=== PATIENT | female | born 1975 | race African-American/Black ===

== ENCOUNTER 2021-11-23 03:38 | Inpatient (IN) | payer MEDICARE, MEDICAID ==
[~2021-11-23] VITALS: Ht 165.1 cm; Wt 90.0 kg
[~2021-11-23 03:38] MED LIST: DILT240C94 PO; FOLI1TAB27 PO; FOLI1TAB34 PO; FURO-149 PO; HYDR-4069 PO; ICOS1CAP PO; LABE100T5 PO; OMEP20CA15 PO; SEVE800T8 PO
[2021-11-23] MEDS ORDERED: nitroGLYCERIN 1gm ointment UD TP ONE ×2 (03:57→04:05)
[2021-11-23] MEDS ORDERED: acetaminophen 325mg tablet PO ONE (04:00)
--- NOTE | 2021-11-23 04:11 | NUR ---
SAMANTHA (MOTHER AND POA) [phone]
--- NOTE | 2021-11-23 04:21 | NUR ---
PT DIALYSIS DAYS T, TH, SAT
[2021-11-23] MEDS ORDERED: PARO7.5C2 PO (04:34)
[2021-11-23] MEDS ORDERED: ALPR-624 PO (04:34)
[2021-11-23] MEDS ORDERED: ACET650S13 PO (04:34)
[2021-11-23] MEDS ORDERED: MULT-1085 PO (04:34)
[2021-11-23] MEDS ORDERED: MONT10TA21 PO (04:34)
[2021-11-23] MEDS ORDERED: BUDE0.5A11 NEB (04:34)
[2021-11-23] MEDS ORDERED: SEVE0.8P PO (04:34)
[2021-11-23] MEDS ORDERED: BUME2TAB7 PO (04:34)
[2021-11-23] MEDS ORDERED: ALB0.5UD IH (04:34)
[2021-11-23] MEDS ORDERED: ASPI81TA52 PO (04:34)
[2021-11-23] MEDS ORDERED: TIOT18CA3 PO (04:34)
[2021-11-23] MEDS ORDERED: PRED20TA PO (04:34)
[2021-11-23] MEDS ORDERED: SULF-14 PO (04:34)
[2021-11-23] MEDS ORDERED: HYDR-3686 PO (04:34)
[2021-11-23] MEDS ORDERED: PANT40TA54 PO (04:34)
[2021-11-23] MEDS ORDERED: FLUT16SP2 BOTHNARES (04:34)
[2021-11-23 04:43] LABS: ABG BASE EXCESS 6.3 mmol/L (-2.0-2.0); ABG OXYGEN SATURATION 99.3 % (94-97); ABG PCO2 (T) 49.1 mmHg (32.0-45.0); ABG PO2 (T) 398.2 mmHg (75.0-100.0); ALLEN'S TEST POSITIVE; FCOHb 0.2 % (0.0-3.9); FMetHb 0.3 % (0.0-1.5); FO2Hb 98.8 % (94-97); PATIENT TEMPERATURE 38.6; TOTAL HEMOGLOBIN 10.3 G/dl (12.0-16.0)
[2021-11-23 04:49] LABS: BASOPHILS # (AUTO) 0.1 X10'3 (0-0.2); BASOPHILS % (AUTO) 0.4 % (0-1); EOSINOPHILS # (AUTO) 0.2 X10'3 (0-0.9); EOSINOPHILS % (AUTO) 1.4 % (0-6); HEMATOCRIT 30.6 % (35.0-45.0); HEMOGLOBIN 9.4 g/dl (12.0-16.0); LYMPHOCYTES # (AUTO) 2.4 X10'3 (1.1-4.8); LYMPHOCYTES % (AUTO) 16.4 % (21-51); MEAN CORPUSCULAR HEMOGLOBIN 27.4 PG (27.0-31.0); MEAN CORPUSCULAR HGB CONC 30.8 g/dL (33.0-36.5); MEAN CORPUSCULAR VOLUME 89.1 FL (78-98); MEAN PLATELET VOLUME 8.1 FL (7.4-10.4); MONOCYTES # (AUTO) 1.1 X10'3 (0-0.9); MONOCYTES % (AUTO) 7.5 % (2-12); NEUTROPHILS # (AUTO) 10.7 X10'3 (1.8-7.7); NEUTROPHILS % (AUTO) 74.3 % (42-75); PLATELET COUNT 323 X10'3 (140-440); RED BLOOD COUNT 3.44 X10'6 (4.20-5.60); RED CELL DISTRIBUTION WIDTH 16.8 % (11.5-14.5); WHITE BLOOD COUNT 14.3 X10'3 (4.5-11.0)
[2021-11-23] MEDS ORDERED: vancomycin/NS 1 GM ADD-VANTAGE 250 ML IV STA (05:37)
[2021-11-23] MEDS ORDERED: cefepime 1GM/NS ADD-VANTAGE 100 ML IV STA (05:37)
[2021-11-23] MEDS ORDERED: cefepime 1GM in D5W 50mL 50 ML IV STA (05:42)
[2021-11-23 05:47] LABS: ALANINE AMINOTRANSFERASE 19 U/L (12-78); ALBUMIN 2.9 G/DL (3.4-5.0); ALBUMIN/GLOBULIN RATIO 0.9 (1.1-1.5); ALKALINE PHOSPHATASE 118 IU/L (46-116); ANION GAP 8 (8-16); ASPARTATE AMINO TRANSFERASE 21 U/L (10-37); BILIRUBIN,TOTAL 0.3 MG/DL (0.1-1.0); BLOOD UREA NITROGEN 88 MG/DL (7-18); BUN/CREATININE RATIO 12.6 (6.6-38.0); CALCIUM 9.8 MG/DL (8.5-10.1); CHLORIDE 99 MMOL/L (99-107); CREATININE 6.99 MG/DL (0.40-0.90); GLUCOSE 145 MG/DL (70-104); SODIUM 141 MMOL/L (135-145); eGFR 8 ML/MIN
[2021-11-23 05:50] LABS: POTASSIUM 4.5 MMOL/L (3.5-5.1)
[2021-11-23] MEDS ORDERED: ipratropium/albuterol 3ml nebule NEB ONE (05:55)
[2021-11-23] MEDS ORDERED: HYDROcodone/acetaminophen 10/325mg tab PO ONE (07:50)
[2021-11-23] MEDS ORDERED: potassium Cl 20 mEq SR tablet PO PRN (09:15)
[2021-11-23] MEDS ORDERED: magnesium Cl slow-release 64mg tablet PO PRN (09:15)
[2021-11-23] MEDS ORDERED: magnesium 2GM in 50ml NS 50 ML IV PRN (09:15)
[2021-11-23] MEDS ORDERED: magnesium 4gm in 100ml NS 100 ML IV PRN (09:15)
[2021-11-23] MEDS ORDERED: potassium CL 10mEq/100ml bag 100 ML IV PRN (09:15)
[2021-11-23] MEDS ORDERED: ALPRAZolam 0.5mg tablet PO PRN (09:20)
[2021-11-23] MEDS: fluticasone nasal spray 16GM bottle NS SCH (09:27)
[2021-11-23] MEDS: albuterol 2.5 MG/3 ML nebule NEB PRN ×3 (10:18→20:17)
[2021-11-23] MEDS ORDERED: EPOETIN ALFA-EPBX 20,000 UNIT/ML 1 ML MDV IV ONE (14:20)
[2021-11-23] MEDS ORDERED: albumin (human) 25% 100ml IV 100 ML IV PRN (14:20)
[2021-11-23] MEDS ORDERED: LIDOcaine 1% (10mg/ml) 2ml vial SQ ONE (14:40)
[2021-11-23] MEDS ORDERED: ARFO15VI NEB (15:08)
[2021-11-23] MEDS ORDERED: BENZ-49 PO (15:08)
[2021-11-23] MEDS ORDERED: ALBU2.5V13 NEB (15:08)
[2021-11-23] MEDS ORDERED: SEVE2.4P3 PO (15:08)
[2021-11-23] MEDS ORDERED: CARV25TA2 PO (15:08)
[2021-11-23] MEDS ORDERED: HYDR50TA65 PO (15:08)
[2021-11-23] MEDS ORDERED: PRED10TA23 PO (15:08)
[2021-11-23] MEDS ORDERED: HYDR-3964 PO (15:08)
[2021-11-23] MEDS ORDERED: [UNRECOGNIZED DRUG - CODE] PO (15:10)
[2021-11-23] MEDS ORDERED: FLUT16SP26 BOTHNARES ×2 (15:13→15:14)
[2021-11-23] MEDS: sevelamer carbonate 0.8gm powder pkt PO SCH (16:00)
[2021-11-23] MEDS ORDERED: LORazepam 2 mg/ml vial IV PRN (16:20)
[2021-11-23] MEDS: acetaminophen 325mg tablet PO PRN (17:41)
[2021-11-23] MEDS: benzonatate 100mg capsule PO PRN (17:42)
[2021-11-23] MEDS: K and/or MAG REPLACEMENT MC SCH (20:00)
[2021-11-23] MEDS: heparin, porcine 5000 units/ml vial SQ SCH (20:00)
[2021-11-23] MEDS: furosemide 40mg/4ml inj IV SCH (20:00)
[2021-11-23] MEDS: budesonide 0.5mg/2ml UD nebule IH SCH (20:17)
[2021-11-23] MEDS: LORazepam 0.5 MG tablet PO PRN (21:25)
[2021-11-23] MEDS: hydrOXYzine 25 MG tablet PO PRN (21:25)
[2021-11-24] MEDS: temazepam 15mg capsule PO PRN ×2 (00:13→19:35)
[2021-11-24 02:00] VITALS: BP 107/56
[2021-11-24 05:56] LABS: BASOPHILS % (AUTO) 0.2 % (0-1); EOSINOPHILS # (AUTO) 0.3 X10'3 (0-0.9); EOSINOPHILS % (AUTO) 2.9 % (0-6); HEMATOCRIT 26.2 % (35.0-45.0); HEMOGLOBIN 8.3 g/dl (12.0-16.0); LYMPHOCYTES # (AUTO) 1.8 X10'3 (1.1-4.8); LYMPHOCYTES % (AUTO) 16.2 % (21-51); MEAN CORPUSCULAR HEMOGLOBIN 27.7 PG (27.0-31.0); MEAN CORPUSCULAR HGB CONC 31.6 g/dL (33.0-36.5); MEAN CORPUSCULAR VOLUME 87.7 FL (78-98); MEAN PLATELET VOLUME 7.5 FL (7.4-10.4); MONOCYTES # (AUTO) 0.6 X10'3 (0-0.9); MONOCYTES % (AUTO) 5.5 % (2-12); NEUTROPHILS # (AUTO) 8.2 X10'3 (1.8-7.7); NEUTROPHILS % (AUTO) 75.2 % (42-75); PLATELET COUNT 225 X10'3 (140-440); RED BLOOD COUNT 2.99 X10'6 (4.20-5.60); WHITE BLOOD COUNT 10.9 X10'3 (4.5-11.0)
[2021-11-24 06:00] VITALS: BP 107/54
[2021-11-24 06:49] LABS: ALANINE AMINOTRANSFERASE 15 U/L (12-78); ALBUMIN 2.5 G/DL (3.4-5.0); ALKALINE PHOSPHATASE 99 IU/L (46-116); ANION GAP 10 (8-16); ASPARTATE AMINO TRANSFERASE 13 U/L (10-37); BILIRUBIN,TOTAL 0.5 MG/DL (0.1-1.0); BLOOD UREA NITROGEN 44 MG/DL (7-18); BUN/CREATININE RATIO 9.1 (6.6-38.0); CALCIUM 9.2 MG/DL (8.5-10.1); CHLORIDE 101 MMOL/L (99-107); CREATININE 4.84 MG/DL (0.40-0.90); GLUCOSE 82 MG/DL (70-104); POTASSIUM 5.1 MMOL/L (3.5-5.1); SODIUM 143 MMOL/L (135-145); TOTAL CARBON DIOXIDE 31.9 MMOL/L (24-32); eGFR 12 ML/MIN
[2021-11-24] MEDS: K and/or MAG REPLACEMENT MC SCH ×2 (08:00→20:00)
[2021-11-24] MEDS: heparin, porcine 5000 units/ml vial SQ SCH ×2 (08:00→19:18)
[2021-11-24] MEDS: PARoxetine 10mg tablet PO SCH (08:00)
[2021-11-24] MEDS: montelukast 10mg tablet PO SCH (08:00)
[2021-11-24] MEDS: fluticasone nasal spray 16GM bottle NS SCH (08:00)
[2021-11-24] MEDS: furosemide 40mg/4ml inj IV SCH ×2 (08:00→19:19)
[2021-11-24] MEDS: aspirin 81mg, enteric-coated 1 TAB TABLET.DR PO SCH (08:07)
[2021-11-24] MEDS: acetaminophen 325mg tablet PO PRN ×2 (08:07→14:33)
[2021-11-24] MEDS: sevelamer carbonate 0.8gm powder pkt PO SCH ×3 (08:14→16:00)
[2021-11-24] MEDS: budesonide 0.5mg/2ml UD nebule IH SCH (09:45)
[2021-11-24] MEDS: albuterol 2.5 MG/3 ML nebule NEB PRN (10:09)
[2021-11-24] MEDS: hydrOXYzine 25 MG tablet PO PRN ×2 (14:29→19:17)
--- NOTE | 2021-11-24 14:54 | NUR ---
O2 Sat at rest on room air:___% If below 89%: Recovery O2 Sat at rest on ___LPM:___%:___% via (mask/nasal cannula, etc..) No further documentation is necessary. If O2 Sat did not drop below 89% on room air,ambulate patient on room air. O2 Sat while ambulating on room air:_82__% Recovery O2 Sat while ambulating on __3_LPM:_92__% No further documentation is necessary. If patient does not drop below 89% while ambulating, he/she does not qualify for home O2.
[2021-11-24 15:00] VITALS: BP 154/93
[2021-11-24 18:00] VITALS: BP 140/63
[2021-11-24] MEDS: benzonatate 100mg capsule PO PRN (19:35)
[2021-11-24] MEDS: LORazepam 0.5 MG tablet PO PRN (19:35)
[2021-11-24] MEDS: carVEDilol 12.5mg tablet PO SCH (21:19)
[2021-11-24 22:00] VITALS: BP 131/84
[2021-11-25 02:00] VITALS: BP 122/62
[2021-11-25 06:00] VITALS: BP 135/83
--- NOTE | 2021-11-25 06:47 | NUR ---
Patient was to be discharged 11/24 but oxygen supply didnt deliver. Patient stayed over night medicated with medication as ordered blood pressure given. She asked for pain meds and ativan Her bipap was put on as she rested well.
[2021-11-25 07:00] VITALS: BP 135/83
[2021-11-25 07:01] LABS: BASOPHILS % (AUTO) 0.3 % (0-1); EOSINOPHILS # (AUTO) 0.3 X10'3 (0-0.9); EOSINOPHILS % (AUTO) 3.2 % (0-6); HEMATOCRIT 24.1 % (35.0-45.0); HEMOGLOBIN 7.8 g/dl (12.0-16.0); LYMPHOCYTES # (AUTO) 1.6 X10'3 (1.1-4.8); LYMPHOCYTES % (AUTO) 19.7 % (21-51); MEAN CORPUSCULAR HEMOGLOBIN 27.9 PG (27.0-31.0); MEAN CORPUSCULAR HGB CONC 32.2 g/dL (33.0-36.5); MEAN CORPUSCULAR VOLUME 86.7 FL (78-98); MEAN PLATELET VOLUME 7.7 FL (7.4-10.4); MONOCYTES # (AUTO) 0.6 X10'3 (0-0.9); MONOCYTES % (AUTO) 6.8 % (2-12); NEUTROPHILS # (AUTO) 5.7 X10'3 (1.8-7.7); PLATELET COUNT 210 X10'3 (140-440); RED BLOOD COUNT 2.78 X10'6 (4.20-5.60); RED CELL DISTRIBUTION WIDTH 16.1 % (11.5-14.5); WHITE BLOOD COUNT 8.1 X10'3 (4.5-11.0)
[2021-11-25 07:13] LABS: ALANINE AMINOTRANSFERASE 10 U/L (12-78); ALBUMIN 2.3 G/DL (3.4-5.0); ALBUMIN/GLOBULIN RATIO 0.9 (1.1-1.5); ALKALINE PHOSPHATASE 101 IU/L (46-116); ANION GAP 8 (8-16); ASPARTATE AMINO TRANSFERASE 10 U/L (10-37); BILIRUBIN,TOTAL 0.3 MG/DL (0.1-1.0); BLOOD UREA NITROGEN 64 MG/DL (7-18); BUN/CREATININE RATIO 9.6 (6.6-38.0); CALCIUM 9.2 MG/DL (8.5-10.1); CHLORIDE 102 MMOL/L (99-107); CREATININE 6.64 MG/DL (0.40-0.90); GLUCOSE 113 MG/DL (70-104); POTASSIUM 4.8 MMOL/L (3.5-5.1); SODIUM 142 MMOL/L (135-145); TOTAL CARBON DIOXIDE 32.3 MMOL/L (24-32); TOTAL PROTEIN 4.9 G/DL (6.4-8.2); eGFR 8 ML/MIN
[2021-11-25] MEDS: fluticasone nasal spray 16GM bottle NS SCH (08:00)
[2021-11-25] MEDS: heparin, porcine 5000 units/ml vial SQ SCH (08:00)
[2021-11-25] MEDS: PARoxetine 10mg tablet PO SCH (08:00)
[2021-11-25] MEDS: furosemide 40mg/4ml inj IV SCH (08:00)
[2021-11-25] MEDS: K and/or MAG REPLACEMENT MC SCH (08:00)
[2021-11-25] MEDS: sevelamer carbonate 0.8gm powder pkt PO SCH ×2 (09:21)
[2021-11-25] MEDS: montelukast 10mg tablet PO SCH (09:22)
[2021-11-25] MEDS: aspirin 81mg, enteric-coated 1 TAB TABLET.DR PO SCH (09:23)
[2021-11-25] MEDS: carVEDilol 12.5mg tablet PO SCH (09:23)
[2021-11-25] MEDS: hydrOXYzine 25 MG tablet PO PRN (09:24)
[2021-11-25] MEDS ORDERED: EPOETIN ALFA-EPBX 20,000 UNIT/ML 1 ML MDV IV ONE (09:30)
[2021-11-25] MEDS ORDERED: albumin (human) 25% 100ml IV 100 ML IV PRN (09:30)
[2021-11-25] MEDS ORDERED: LIDOcaine 1% (10mg/ml) 2ml vial SQ ONE (09:30)
[2021-11-25] MEDS: budesonide 0.5mg/2ml UD nebule IH SCH ×2 (10:21→10:24)
[2021-11-25] MEDS: albuterol 2.5 MG/3 ML nebule NEB PRN (10:22)
[2021-11-25 11:00] VITALS: BP 119/80
== END 2021-11-25 11:40 | disposition home or self-care (01) | DRG 291 ==
LOC: ER 03:38 → ED HOLD 09:18 → PCU 3S 11:45
PROVIDERS: ADMIT Internal Medicine; ATTEND Internal Medicine
PROC: 5A09357 Assistance with Respiratory Ventilation, Less than 24 Consecutive Hours, Continuous Positive Airway Pressure (ICD-10-PCS; principal; 2021-11-23)
PROC: 5A1D70Z Performance of Urinary Filtration, Intermittent, Less than 6 Hours Per Day (ICD-10-PCS; 2021-11-23)
PROC: 5A09357 Assistance with Respiratory Ventilation, Less than 24 Consecutive Hours, Continuous Positive Airway Pressure (ICD-10-PCS; 2021-11-25)
DX: I13.2 Hypertensive heart and chronic kidney disease with heart failure and with stage 5 chronic kidney disease, or end stage renal disease (principal); J96.00 Acute respiratory failure, unspecified whether with hypoxia or hypercapnia; I50.23 Acute on chronic systolic (congestive) heart failure; N18.6 End stage renal disease; I40.1 Isolated myocarditis; D63.1 Anemia in chronic kidney disease; E66.01 Morbid (severe) obesity due to excess calories; F41.0 Panic disorder [episodic paroxysmal anxiety]; G47.30 Sleep apnea, unspecified; Z20.822 Contact with and (suspected) exposure to COVID-19; Z86.73 Personal history of transient ischemic attack (TIA), and cerebral infarction without residual deficits; Z99.2 Dependence on renal dialysis; Z68.33 Body mass index [BMI] 33.0-33.9, adult; Z88.8 Allergy status to other drugs, medicaments and biological substances; Z88.5 Allergy status to narcotic agent; Z79.899 Other long term (current) drug therapy; Z79.82 Long term (current) use of aspirin
CPT/HCPCS: 36415; 36600; 71045; 80053; 82803; 83605; 83880; 84145; 84484; 85018; 85025; 87040; 87635; 93005; 93306; 94640; 94660; 94760; 94799; 97116; 97163; 97530; 99285; C9803; G0257; G0378; J0692; J2060; J3370; J3490; Q0177; Q4081

== ENCOUNTER 2021-12-03 23:31 | Inpatient (IN) | payer MEDICARE, MEDICAID ==
[~2021-12-03] VITALS: Ht 165.1 cm; Wt 94.9 kg
[~2021-12-03 23:31] MED LIST changes: +ALBU2.5V13 NEB; +ALPR-624 PO; +ARFO15VI NEB; +ASPI81TA52 PO; +BENZ-49 PO; +BUDE0.5A11 NEB; +BUME2TAB7 PO; +CARV25TA2 PO; -DILT240C94 PO; +FLUT16SP26 BOTHNARES; -FOLI1TAB27 PO; -FOLI1TAB34 PO; -FURO-149 PO; +HYDR-3964 PO; -HYDR-4069 PO; +HYDR50TA65 PO; -ICOS1CAP PO; -LABE100T5 PO; +MONT10TA21 PO; -OMEP20CA15 PO; +PRED10TA23 PO; +SEVE2.4P3 PO; -SEVE800T8 PO; +SULF-14 PO; +TIOT18CA3 PO; +[UNRECOGNIZED DRUG - CODE] PO
[2021-12-04 00:17] LABS: BASOPHILS % (AUTO) 0.2 % (0-1); EOSINOPHILS % (AUTO) 0.3 % (0-6); HEMOGLOBIN 8.6 g/dl (12.0-16.0); LYMPHOCYTES # (AUTO) 2.1 X10'3 (1.1-4.8); LYMPHOCYTES % (AUTO) 13.3 % (21-51); MEAN CORPUSCULAR HEMOGLOBIN 26.9 PG (27.0-31.0); MEAN CORPUSCULAR HGB CONC 30.8 g/dL (33.0-36.5); MEAN CORPUSCULAR VOLUME 87.3 FL (78-98); MEAN PLATELET VOLUME 7.3 FL (7.4-10.4); MONOCYTES % (AUTO) 6.4 % (2-12); NEUTROPHILS # (AUTO) 12.5 X10'3 (1.8-7.7); NEUTROPHILS % (AUTO) 79.8 % (42-75); PLATELET COUNT 351 X10'3 (140-440); RED CELL DISTRIBUTION WIDTH 16.2 % (11.5-14.5); WHITE BLOOD COUNT 15.7 X10'3 (4.5-11.0)
[2021-12-04] MEDS ORDERED: benzonatate 100mg capsule PO ONE (00:25)
[2021-12-04] MEDS ORDERED: ipratropium/albuterol 3ml nebule NEB ONE ×2 (00:30→04:00)
[2021-12-04] MEDS ORDERED: methylPREDNISolone sod succ 125mg/2ml vial IV ONE (00:30)
[2021-12-04 00:31] LABS: ALANINE AMINOTRANSFERASE 46 U/L (12-78); ALBUMIN 3.4 G/DL (3.4-5.0); ALBUMIN/GLOBULIN RATIO 1.1 (1.1-1.5); ALKALINE PHOSPHATASE 126 IU/L (46-116); ANION GAP 8 (8-16); ASPARTATE AMINO TRANSFERASE 20 U/L (10-37); BILIRUBIN,TOTAL 0.4 MG/DL (0.1-1.0); BLOOD UREA NITROGEN 60 MG/DL (7-18); BUN/CREATININE RATIO 10.3 (6.6-38.0); CALCIUM 9.4 MG/DL (8.5-10.1); CHLORIDE 101 MMOL/L (99-107); GLUCOSE 245 MG/DL (70-104); POTASSIUM 5.4 MMOL/L (3.5-5.1); SODIUM 142 MMOL/L (135-145); TOTAL PROTEIN 6.4 G/DL (6.4-8.2); eGFR 10 ML/MIN
[2021-12-04] MEDS ORDERED: CefTRIAXone/D5W-Rocephin 1gm 50 ML IV ONE (00:45)
[2021-12-04] MEDS ORDERED: nitroGLYCERIN 1gm ointment UD TP STA (01:01)
[2021-12-04] MEDS ORDERED: magnesium 4gm in 100ml NS 100 ML IV PRN (01:35)
[2021-12-04] MEDS ORDERED: potassium Cl 20 mEq SR tablet PO PRN ×2 (01:35)
[2021-12-04] MEDS ORDERED: potassium CL 10mEq/100ml bag 100 ML IV PRN (01:35)
[2021-12-04] MEDS ORDERED: morphine 2 MG/ML inj. syringe IV PRN (01:35)
[2021-12-04] MEDS ORDERED: ipratropium/albuterol 3ml nebule NEB PRN ×2 (01:35)
[2021-12-04] MEDS ORDERED: magnesium 2GM in 50ml NS 50 ML IV PRN (01:35)
[2021-12-04] MEDS ORDERED: ondansetron/PF 4mg/2ml inj IV PRN (01:35)
[2021-12-04] MEDS ORDERED: magnesium Cl slow-release 64mg tablet PO PRN (01:35)
--- NOTE | 2021-12-04 01:47 | NUR ---
luci webb [facility] [place] [phone]
[2021-12-04] MEDS ORDERED: diphenhydrAMINE 50 mg/ml inj IV ONE ×2 (01:50→02:00)
--- NOTE | 2021-12-04 01:57 | NUR ---
pt changed into hospital gown and repositioned in bed. no complaints at this time.
[2021-12-04] MEDS ORDERED: hydrOXYzine 10 MG tablet PO STA (02:06)
[2021-12-04] MEDS ORDERED: hydrOXYzine 10 MG tablet PO PRN (02:10)
[2021-12-04] MEDS ORDERED: ALPRAZolam 0.25mg tablet PO ONE (03:45)
--- NOTE | 2021-12-04 04:58 | NUR ---
Patient continues to complain of cough, room temp and anxiety. Dr. Hill has been advised. Troponin is also due, however she is a hard stick and IV is now occluded.
[2021-12-04] MEDS ORDERED: guaiFENesin/DM/phenylephrine syrup 120ml bottle PO STA (05:04)
--- NOTE | 2021-12-04 05:13 | NUR ---
Patient complaining of the room being hot again, and I advised her I have adjusted the temp control down as low as it goes. She then said "I've told you I'm hot and coughing Bitch and you won't do anything to help so just leave". I left the room.
[2021-12-04] MEDS ORDERED: guaiFENesin/DM 10ml UD oral syrup PO STA (05:19)
[2021-12-04] MEDS ORDERED: guaiFENesin/DM 10ml UD oral syrup PO ONE (05:25)
--- NOTE | 2021-12-04 06:06 | NUR ---
sent request to RT for breathing treatment.
--- NOTE | 2021-12-04 06:58 | NUR ---
TELEPHONE REPORT TO BRAD QUINONES.
[2021-12-04] MEDS: ipratropium/albuterol 3ml nebule NEB SCH ×5 (07:06→22:39)
--- NOTE | 2021-12-04 07:10 | NUR ---
RT AT BEDSIDE.
[2021-12-04] MEDS ORDERED: CefTRIAXone/D5W-Rocephin 1gm 50 ML IV SCH (08:00)
[2021-12-04] MEDS: K and/or MAG REPLACEMENT MC SCH ×2 (08:00→20:00)
[2021-12-04] MEDS: CefTRIAXone/D5W-Rocephin 1gm 50 ML IV SCH (08:00)
[2021-12-04] MEDS ORDERED: azithromycin/NS 500mg/250ml 250 ML IV SCH (08:00)
[2021-12-04] MEDS: azithromycin/NS 500mg/250ml 250 ML IV SCH (08:00)
[2021-12-04] MEDS: methylPREDNISolone sod succ/PF 40mg inj. IV SCH ×2 (08:00→20:00)
[2021-12-04] MEDS ORDERED: methylPREDNISolone sod succ 125mg/2ml vial IV SCH (08:00)
--- NOTE | 2021-12-04 08:15 | NUR ---
Received patient from ER with increased SOB, respiratory therapy reajusted BIPAP. Will continue to monitor.
--- NOTE | 2021-12-04 08:25 | NUR ---
SPOKE WITH PATIENT WHO IS DECLINING IV ACCES OR CARE. EXPLAINED THAT SHE MAY END UP CODING WITH A TUBE DOWN HER THROAT TO BREATH SHE IS NOT STABLE. SHE CHASED ME OUT OF THE ROOM. NON COMPLIANT PLAN OF CARE ENTERED MD IS PAGED BY PRIMARY RN.
--- NOTE | 2021-12-04 08:31 | NUR ---
Pt Boo Alexandrea Rm 9952S, very anxious, c/o SOB on BIPAP O2 sat 98%. Refused IV access, does not want to be touched, but kept calling for help. Need your intervention JEZ please. Saranya/BRAD [phone]
[2021-12-04] MEDS ORDERED: furosemide 40mg/4ml inj IV ONE (09:10)
[2021-12-04] MEDS ORDERED: LORazepam 2 mg/ml vial IV ONE (09:10)
[2021-12-04] MEDS: ALPRAZolam 0.5mg tablet PO PRN ×2 (10:05→20:23)
[2021-12-04] MEDS ORDERED: LIDOcaine 1% (10mg/ml) 2ml vial SQ ONE (10:45)
[2021-12-04] MEDS ORDERED: EPOETIN ALFA-EPBX 20,000 UNIT/ML 1 ML MDV IV ONE (10:45)
[2021-12-04] MEDS ORDERED: normal saline 1000ml 250 ML IV PRN (10:45)
[2021-12-04] MEDS ORDERED: normal saline 1000ml 100 ML IV PRN (10:45)
[2021-12-04 11:00] VITALS: BP 138/88
[2021-12-04] MEDS: benzonatate 100mg capsule PO PRN ×2 (11:21→11:33)
--- NOTE | 2021-12-04 16:18 | NUR ---
PT WANTED BREAK FROM BPAP GAVE TREATMENT ON OXYGEN SPO2 MAINTAINED [id number]% Addendum: 12/04/21 at 1619 by Antwan Manzano RT Amended: Links added.
[2021-12-04 16:29] LABS: MAGNESIUM 1.4 MG/DL (1.5-2.4); POTASSIUM 3.8 MMOL/L (3.5-5.1)
--- NOTE | 2021-12-04 16:30 | NUR ---
DECREASED SET RR TO 10 LESS ASYNCHRONY, OVERALL RR DROPPED FROM 37 TO 28. Addendum: 12/04/21 at 1630 by Antwan Manzano RT Amended: Links added.
[2021-12-04 17:00] VITALS: BP 114/43
--- NOTE | 2021-12-04 18:40 | NUR ---
IV meds not administered, no IV access. Patient refused midline to be inserted. Dr. Gallardo was made aware.
--- NOTE | 2021-12-04 18:42 | NUR ---
Patient in room PCU 3027. I have received report from BRAD Beaver and had the opportunity to ask questions and assume patient care.
--- NOTE | 2021-12-04 19:09 | NUR ---
Problems reprioritized. Patient report given, questions answered & plan of care reviewed with Pricila/RN.
--- NOTE | 2021-12-04 22:37 | NUR ---
PAGER ID: [phone] MESSAGE: Alexandrea Haddad [phone] requesting for her night scheduled meds from home like the Renvela, Carvedilol and hydrocortisone. She doesn't have none of those meds in [facility] for tonight or in the morning. Thanks.
--- NOTE | 2021-12-04 23:48 | NUR ---
Dr Geller ordered to resume home meds.
[2021-12-05] MEDS: hydrOXYzine 25 MG tablet PO PRN ×3 (00:22→23:26)
[2021-12-05] MEDS: ipratropium/albuterol 3ml nebule NEB SCH ×6 (02:47→23:24)
[2021-12-05 06:00] VITALS: BP 114/59
--- NOTE | 2021-12-05 06:45 | NUR ---
Problems reprioritized. Patient report given, questions answered & plan of care reviewed with BRAD Bill.
[2021-12-05] MEDS: azithromycin/NS 500mg/250ml 250 ML IV SCH (08:00)
[2021-12-05] MEDS: methylPREDNISolone sod succ/PF 40mg inj. IV SCH ×2 (08:00→20:00)
[2021-12-05] MEDS: CefTRIAXone/D5W-Rocephin 1gm 50 ML IV SCH (08:00)
[2021-12-05] MEDS: sevelamer carbonate 800mg tablet PO SCH ×3 (08:30→16:49)
[2021-12-05] MEDS: carVEDilol 12.5mg tablet PO SCH ×2 (08:31→20:00)
[2021-12-05] MEDS: K and/or MAG REPLACEMENT MC SCH ×2 (08:31→20:00)
[2021-12-05 11:00] VITALS: BP 110/63
[2021-12-05] MEDS ORDERED: ALPRAZolam 0.5mg tablet PO PRN (11:25)
[2021-12-05] MEDS ORDERED: non-formulary drug (Hydroxyzine HCl 1 TAB) PO PRN (11:25)
[2021-12-05] MEDS ORDERED: albuterol 2.5 MG/3 ML nebule NEB PRN (11:25)
[2021-12-05] MEDS ORDERED: fluticasone nasal spray 16GM bottle NS PRN (11:40)
[2021-12-05] MEDS: bumetanide 1mg tablet PO SCH (11:56)
[2021-12-05] MEDS: benzonatate 100mg capsule PO SCH ×2 (12:52→19:58)
[2021-12-05] MEDS: aspirin 81mg, enteric-coated 1 TAB TABLET.DR PO SCH (12:53)
--- NOTE | 2021-12-05 12:58 | NUR ---
Message to dr. gallardo regarding pain/asking for tylenol PAGER ID: [phone] MESSAGE: [phone] Alexandrea Haddad Md Dr. Gallardo, The patient is complaining of a headache. Can I please have some Tylenol for her? Thanks, shahana RN PCU ext [phone]
[2021-12-05] MEDS ORDERED: SEVELAMER CARBONATE PO SCH (13:00)
[2021-12-05] MEDS: acetaminophen 325mg tablet PO PRN ×2 (13:18→18:37)
--- NOTE | 2021-12-05 14:08 | NUR ---
Called Dr Lazo concerning low BP 61/33(39). Per MD, hold all BP meds today, including lasix. Make sure pt gets a breathing treatment today.
--- NOTE | 2021-12-05 14:15 | NUR ---
Paged respiratory and asked them to come see patient for urgent breathing treatment.
[2021-12-05 15:00] VITALS: BP 119/57
--- NOTE | 2021-12-05 16:39 | NUR ---
Page to Dr Gallardo requesting ativan Po MESSAGE: [phone] Alexandrea Haddad Hi Dr Gallardo, the patient's Ativan is IV only, but she no longer have IV access. Can I have it PO please? Thanks. March RN PCU ext [phone]
--- NOTE | 2021-12-05 18:40 | NUR ---
Patient in room PCU 3027. I have received report from BRAD Bill and had the opportunity to ask questions and assume patient care.
[2021-12-05 19:00] VITALS: BP 129/73
[2021-12-05] MEDS: budesonide 0.5mg/2ml UD nebule IH SCH (19:37)
[2021-12-05] MEDS: guaiFENesin ER 600mg tablet PO SCH (19:58)
[2021-12-05] MEDS ORDERED: ARFORMOTEROL TARTRATE NEB SCH (20:00)
[2021-12-05] MEDS: ALPRAZolam 0.5mg tablet PO PRN (20:07)
[2021-12-05 23:00] VITALS: BP 104/59
[2021-12-06 03:00] VITALS: BP 96/45
[2021-12-06] MEDS: ipratropium/albuterol 3ml nebule NEB SCH ×4 (03:49→14:59)
--- NOTE | 2021-12-06 05:40 | NUR ---
Patient refused manager labor delivery to drawn blood.
[2021-12-06 06:00] VITALS: BP_SYST 103; BP_SYST 116; BP_DIAS 54; BP_DIAS 61
--- NOTE | 2021-12-06 06:27 | NUR ---
Problems reprioritized. Patient report given, questions answered & plan of care reviewed with BRAD Garcia.
[2021-12-06] MEDS: budesonide 0.5mg/2ml UD nebule IH SCH (06:51)
--- NOTE | 2021-12-06 07:26 | NUR ---
Patient in room PCU 3027. I have received report from BRAD Mcnulty and had the opportunity to ask questions and assume patient care.
[2021-12-06] MEDS: carVEDilol 12.5mg tablet PO SCH (08:00)
[2021-12-06] MEDS: CefTRIAXone/D5W-Rocephin 1gm 50 ML IV SCH (08:00)
[2021-12-06] MEDS: azithromycin/NS 500mg/250ml 250 ML IV SCH (08:00)
[2021-12-06] MEDS ORDERED: prednisone 10mg tablet PO SCH (08:00)
[2021-12-06] MEDS ORDERED: TIOTROPIUM BROMIDE PO SCH (08:00)
[2021-12-06] MEDS ORDERED: albumin (human) 25% 100ml IV 100 ML IV PRN (08:00)
[2021-12-06] MEDS: bumetanide 1mg tablet PO SCH (08:00)
[2021-12-06] MEDS ORDERED: montelukast 10mg tablet PO SCH (08:00)
[2021-12-06] MEDS: methylPREDNISolone sod succ/PF 40mg inj. IV SCH (08:00)
[2021-12-06] MEDS ORDERED: sulfamethoxazole/trimethoprim DS (800/160mg) tablet PO SCH (08:00)
[2021-12-06] MEDS: aspirin 81mg, enteric-coated 1 TAB TABLET.DR PO SCH (08:33)
[2021-12-06] MEDS: sevelamer carbonate 800mg tablet PO SCH ×2 (08:33→17:06)
[2021-12-06] MEDS: benzonatate 100mg capsule PO SCH ×2 (08:33→17:05)
[2021-12-06] MEDS: guaiFENesin ER 600mg tablet PO SCH (08:34)
--- NOTE | 2021-12-06 09:26 | NUR ---
Page sent PAGER ID: [phone] MESSAGE: [id number]. Alexandrea Haddad. Patient has methylprednisone 40 mg IVP. does not have IV access. needs a for severe itching, can we change it PO, she said her PO dose was hydrocortisone 100 mg PO. please Advise [phone]
[2021-12-06] MEDS ORDERED: predniSONE 20 mg tablet PO SCH (10:48)
[2021-12-06] MEDS ORDERED: LIDOcaine 1% (10mg/ml) 2ml vial SQ ONE (11:10)
[2021-12-06] MEDS: ALPRAZolam 0.5mg tablet PO PRN (11:38)
[2021-12-06] MEDS: hydrOXYzine 25 MG tablet PO PRN (11:38)
[2021-12-06 12:03] LABS: BASOPHILS % (AUTO) 0.1 % (0-1); EOSINOPHILS # (AUTO) 0.2 X10'3 (0-0.9); HEMATOCRIT 23.6 % (35.0-45.0); HEMOGLOBIN 7.5 g/dl (12.0-16.0); LYMPHOCYTES # (AUTO) 1.4 X10'3 (1.1-4.8); MEAN CORPUSCULAR HEMOGLOBIN 27.1 PG (27.0-31.0); MEAN CORPUSCULAR HGB CONC 31.7 g/dL (33.0-36.5); MEAN CORPUSCULAR VOLUME 85.4 FL (78-98); MEAN PLATELET VOLUME 6.9 FL (7.4-10.4); MONOCYTES # (AUTO) 0.5 X10'3 (0-0.9); MONOCYTES % (AUTO) 6.2 % (2-12); NEUTROPHILS # (AUTO) 6.5 X10'3 (1.8-7.7); NEUTROPHILS % (AUTO) 75.7 % (42-75); PLATELET COUNT 184 X10'3 (140-440); RED BLOOD COUNT 2.77 X10'6 (4.20-5.60); RED CELL DISTRIBUTION WIDTH 16.3 % (11.5-14.5); WHITE BLOOD COUNT 8.6 X10'3 (4.5-11.0)
[2021-12-06 12:19] LABS: ALBUMIN 2.8 G/DL (3.4-5.0); ANION GAP 6 (8-16); BLOOD UREA NITROGEN 72 MG/DL (7-18); BUN/CREATININE RATIO 10.1 (6.6-38.0); CALCIUM 9.2 MG/DL (8.5-10.1); CHLORIDE 102 MMOL/L (99-107); CREATININE 7.15 MG/DL (0.40-0.90); GLUCOSE 108 MG/DL (70-104); POTASSIUM 4.5 MMOL/L (3.5-5.1); SODIUM 141 MMOL/L (135-145); TOTAL CARBON DIOXIDE 33.4 MMOL/L (24-32); eGFR 7 ML/MIN
[2021-12-06] MEDS ORDERED: PRED20TA PO ×2 (14:17→17:07)
[2021-12-06] MEDS ORDERED: AMOX-117 PO (14:17)
[2021-12-06 14:27] LABS: ELLIPTOCYTES FEW; PLATELET ESTIMATE NORMAL; POLYCHROMASIA 1+; TEAR DROP CELLS FEW; TOTAL CELLS COUNTED 100
--- NOTE | 2021-12-06 16:51 | NUR ---
PAGED DR. CHAUDHARI REGARDING PATIENT'S MOTHER WANTING TO SPEAK ABOUT PATIENT'S MEDICATIONS. PAGER ID: [phone] MESSAGE: [id number]. MODESTO MCBRIDE. WEN'TS MOTHER (POA) AT BEDSIDE AND WOULD LIKE TO SPEAK TO YOU REGARDING MEDICATIONS. THANK YOU. SHALINI SALINAS [phone]
[2021-12-06] MEDS ORDERED: ALB0.5UD IH ×2 (17:06)
== END 2021-12-06 18:30 | disposition home health service (06) | DRG 314 ==
LOC: ER 23:32 → ED HOLD 12-04 01:31 → UNDOADMIN 12-04 01:31 → ED HOLD 12-04 01:36 → PCU 3S 12-04 07:34 → ED HOLD 12-04 07:34 → UNDODISIN 12-06 18:50
PROVIDERS: ADMIT Internal Medicine; ATTEND Internal Medicine
PROC: 5A09457 Assistance with Respiratory Ventilation, 24-96 Consecutive Hours, Continuous Positive Airway Pressure (ICD-10-PCS; principal; 2021-12-04)
PROC: 5A1D70Z Performance of Urinary Filtration, Intermittent, Less than 6 Hours Per Day (ICD-10-PCS; 2021-12-04)
PROC: 5A09357 Assistance with Respiratory Ventilation, Less than 24 Consecutive Hours, Continuous Positive Airway Pressure (ICD-10-PCS; 2021-12-06)
PROC: 5A1D70Z Performance of Urinary Filtration, Intermittent, Less than 6 Hours Per Day (ICD-10-PCS; 2021-12-06)
DX: I40.1 Isolated myocarditis (principal); J15.9 Unspecified bacterial pneumonia; J96.21 Acute and chronic respiratory failure with hypoxia; N18.6 End stage renal disease; I13.2 Hypertensive heart and chronic kidney disease with heart failure and with stage 5 chronic kidney disease, or end stage renal disease; I69.354 Hemiplegia and hemiparesis following cerebral infarction affecting left non-dominant side; J44.0 Chronic obstructive pulmonary disease with (acute) lower respiratory infection; I50.22 Chronic systolic (congestive) heart failure; Z20.822 Contact with and (suspected) exposure to COVID-19; E66.01 Morbid (severe) obesity due to excess calories; Z99.2 Dependence on renal dialysis; Z88.8 Allergy status to other drugs, medicaments and biological substances; Z68.34 Body mass index [BMI] 34.0-34.9, adult; Z79.899 Other long term (current) drug therapy
CPT/HCPCS: 36415; 71045; 80048; 80053; 83605; 83735; 83880; 84132; 84145; 84484; 85007; 85025; 87040; 87635; 93005; 94640; 94660; 94760; 94799; 99291; C9803; G0257; G0378; J0696; J2920; J2930; J3490; J7512; Q0177; Q4081

== ENCOUNTER 2021-12-11 16:18 | Inpatient (IN) | payer MEDICARE, MEDICAID ==
[~2021-12-11] VITALS: Ht 165.1 cm; Wt 92.7 kg
[~2021-12-11 16:18] MED LIST changes: +ALB0.5UD IH; -PRED10TA23 PO; +PRED20TA PO
[2021-12-11] MEDS ORDERED: LORazepam 2 mg/ml vial IV ONE ×2 (16:20)
[2021-12-11] MEDS ORDERED: nitroGLYCERIN 1gm ointment UD TP ONE (16:25)
[2021-12-11] MEDS ORDERED: albuterol 2.5 MG/3 ML nebule CONTNEB PRN (16:25)
[2021-12-11] MEDS ORDERED: ipratropium/albuterol 3ml nebule NEB ONE (16:25)
[2021-12-11] MEDS ORDERED: albuterol 2.5 MG/3 ML nebule ONE (16:29)
[2021-12-11 17:25] LABS: BASOPHILS % (AUTO) 0.2 % (0-1); EOSINOPHILS % (AUTO) 0.1 % (0-6); HEMOGLOBIN 8.1 g/dl (12.0-16.0); MEAN CORPUSCULAR HGB CONC 30.7 g/dL (33.0-36.5); MEAN PLATELET VOLUME 7.7 FL (7.4-10.4); MONOCYTES # (AUTO) 0.5 X10'3 (0-0.9); PLATELET COUNT 233 X10'3 (140-440); RED BLOOD COUNT 3.04 X10'6 (4.20-5.60)
[2021-12-11 17:27] LABS: HEMATOCRIT 26.2 % (35.0-45.0); LYMPHOCYTES # (AUTO) 1.1 X10'3 (1.1-4.8); LYMPHOCYTES % (AUTO) 6.1 % (21-51); MEAN CORPUSCULAR HEMOGLOBIN 26.5 PG (27.0-31.0); MEAN CORPUSCULAR VOLUME 86.2 FL (78-98); MONOCYTES % (AUTO) 2.5 % (2-12); NEUTROPHILS # (AUTO) 16.4 X10'3 (1.8-7.7); NEUTROPHILS % (AUTO) 91.1 % (42-75); RED CELL DISTRIBUTION WIDTH 16.7 % (11.5-14.5)
[2021-12-11 17:50] LABS: ALANINE AMINOTRANSFERASE 70 U/L (12-78); ALBUMIN 3.2 G/DL (3.4-5.0); ALBUMIN/GLOBULIN RATIO 1.1 (1.1-1.5); ALKALINE PHOSPHATASE 111 IU/L (46-116); ANION GAP 13 (8-16); ASPARTATE AMINO TRANSFERASE 21 U/L (10-37); BILIRUBIN,TOTAL 0.5 MG/DL (0.1-1.0); BLOOD UREA NITROGEN 67 MG/DL (7-18); BUN/CREATININE RATIO 11.2 (6.6-38.0); CALCIUM 9.2 MG/DL (8.5-10.1); CHLORIDE 97 MMOL/L (99-107); CREATININE 5.99 MG/DL (0.40-0.90); GLUCOSE 248 MG/DL (70-104); SODIUM 139 MMOL/L (135-145); TOTAL CARBON DIOXIDE 28.9 MMOL/L (24-32); TOTAL PROTEIN 6.1 G/DL (6.4-8.2); eGFR 9 ML/MIN
[2021-12-11] MEDS ORDERED: CefTRIAXone/D5W-Rocephin 1gm 50 ML IV ONE (18:15)
[2021-12-11 18:16] LABS: PLATELET ESTIMATE NORMAL; TOTAL CELLS COUNTED 100
[2021-12-11 18:17] LABS: ANISOCYTOSIS 1+; ELLIPTOCYTES FEW; HYPERSEGMENTED NEUTROPHILS 1+; POLYCHROMASIA 1+; SMUDGE CELLS FEW; TEAR DROP CELLS FEW
[2021-12-11] MEDS ORDERED: ondansetron/PF 4mg/2ml inj IV PRN (19:35)
[2021-12-11] MEDS ORDERED: albuterol 2.5 MG/3 ML nebule NEB PRN ×2 (19:40→22:00)
[2021-12-11] MEDS: carVEDilol 12.5mg tablet PO SCH (20:34)
[2021-12-11] MEDS: benzonatate 100mg capsule PO SCH (20:34)
[2021-12-11] MEDS: heparin, porcine 5000 units/ml vial SQ SCH (20:35)
[2021-12-11] MEDS ORDERED: ipratropium 0.5 MG/2.5ML nebule NEB SCH (21:00)
[2021-12-11 21:50] VITALS: BP 150/92
[2021-12-11] MEDS: acetaminophen 325mg tablet PO PRN (22:33)
--- NOTE | 2021-12-11 22:34 | NUR ---
PT REFUSED MRSA SWAB.
[2021-12-12 02:00] VITALS: BP 152/89
[2021-12-12] MEDS: ipratropium/albuterol 3ml nebule NEB SCH ×4 (03:03→20:34)
--- NOTE | 2021-12-12 05:42 | NUR ---
Pt refused lab work.
[2021-12-12 06:00] VITALS: BP 136/86
[2021-12-12] MEDS ORDERED: heparin 1,000 units/ml 10ml inj IV ONE (07:30)
[2021-12-12] MEDS ORDERED: normal saline 1000ml 250 ML IV PRN (07:30)
[2021-12-12] MEDS ORDERED: EPOETIN ALFA-EPBX 20,000 UNIT/ML 1 ML MDV IV ONE (07:30)
[2021-12-12] MEDS ORDERED: LIDOcaine 1% (10mg/ml) 2ml vial SQ ONE (07:30)
[2021-12-12] MEDS: montelukast 10mg tablet PO SCH (08:09)
[2021-12-12] MEDS: carVEDilol 12.5mg tablet PO SCH ×2 (08:09→19:17)
[2021-12-12] MEDS: predniSONE 20 mg tablet PO SCH (08:10)
[2021-12-12] MEDS: benzonatate 100mg capsule PO SCH ×3 (08:10→21:55)
[2021-12-12] MEDS: heparin, porcine 5000 units/ml vial SQ SCH ×2 (08:11→20:00)
[2021-12-12] MEDS: aspirin 81mg, enteric-coated 1 TAB TABLET.DR PO SCH (08:11)
[2021-12-12] MEDS: sevelamer carbonate 0.8gm powder pkt PO SCH ×3 (08:18→18:00)
[2021-12-12] MEDS: ALPRAZolam 0.25mg tablet PO PRN ×2 (08:31→19:19)
[2021-12-12] MEDS: hydrOXYzine 25 MG tablet PO PRN ×2 (10:01→16:31)
[2021-12-12 11:00] VITALS: BP 127/83
[2021-12-12 12:21] LABS: HEMATOCRIT 23.2 % (35.0-45.0); HEMOGLOBIN 7.2 g/dl (12.0-16.0); MEAN CORPUSCULAR HEMOGLOBIN 26.7 PG (27.0-31.0); MEAN CORPUSCULAR VOLUME 86.2 FL (78-98); MEAN PLATELET VOLUME 7.5 FL (7.4-10.4); PLATELET COUNT 175 X10'3 (140-440); RED BLOOD COUNT 2.69 X10'6 (4.20-5.60); RED CELL DISTRIBUTION WIDTH 16.2 % (11.5-14.5); WHITE BLOOD COUNT 12.5 X10'3 (4.5-11.0)
[2021-12-12 12:39] LABS: ALANINE AMINOTRANSFERASE 53 U/L (12-78); ALBUMIN 3.2 G/DL (3.4-5.0); ALBUMIN/GLOBULIN RATIO 1.2 (1.1-1.5); ALKALINE PHOSPHATASE 93 IU/L (46-116); ANION GAP 11 (8-16); ASPARTATE AMINO TRANSFERASE 16 U/L (10-37); BILIRUBIN,TOTAL 0.3 MG/DL (0.1-1.0); BLOOD UREA NITROGEN 58 MG/DL (7-18); BUN/CREATININE RATIO 11.8 (6.6-38.0); CALCIUM 8.9 MG/DL (8.5-10.1); CHLORIDE 98 MMOL/L (99-107); GLUCOSE 135 MG/DL (70-104); POTASSIUM 4.3 MMOL/L (3.5-5.1); SODIUM 138 MMOL/L (135-145); TOTAL CARBON DIOXIDE 28.8 MMOL/L (24-32); TOTAL PROTEIN 5.8 G/DL (6.4-8.2); eGFR 12 ML/MIN
--- NOTE | 2021-12-12 13:14 | NUR ---
Pt Alexandrea Haddad Rm 3027-B troponin 75. Saranya/RN PCU [id number]
--- NOTE | 2021-12-12 13:27 | NUR ---
was made aware of pt elevated troponin (75). No order received.
[2021-12-12] MEDS: acetaminophen 325mg tablet PO PRN (14:34)
[2021-12-12 18:00] VITALS: BP 143/86
[2021-12-12 19:13] VITALS: BP 141/63
[2021-12-12 22:00] VITALS: BP 160/68
[2021-12-13] MEDS: hydrOXYzine 25 MG tablet PO PRN ×4 (00:03→21:29)
[2021-12-13 02:00] VITALS: BP 129/66
[2021-12-13] MEDS: ipratropium/albuterol 3ml nebule NEB SCH ×4 (02:20→19:36)
[2021-12-13 06:00] VITALS: BP 144/60
--- NOTE | 2021-12-13 07:19 | NUR ---
Patient in room PCU 3027. I have received report from Jazmyn and had the opportunity to ask questions and assume patient care.
[2021-12-13] MEDS ORDERED: CefTRIAXone/D5W-Rocephin 1gm 50 ML IV SCH (08:00)
[2021-12-13] MEDS ORDERED: sulfamethoxazole/trimethoprim SS (400mg/80mg) tab (single-strength) PO SCH (08:00)
[2021-12-13] MEDS ORDERED: sulfamethoxazole/trimethoprim DS (800/160mg) tablet PO SCH (08:00)
[2021-12-13] MEDS ORDERED: CefTRIAXone inj 1,000 MG in dextrose 5%-water 100 ML IV SCH (08:13)
[2021-12-13] MEDS: carVEDilol 12.5mg tablet PO SCH ×2 (08:21→19:27)
[2021-12-13] MEDS: aspirin 81mg, enteric-coated 1 TAB TABLET.DR PO SCH (08:21)
[2021-12-13] MEDS: predniSONE 20 mg tablet PO SCH (08:21)
[2021-12-13] MEDS: benzonatate 100mg capsule PO SCH ×3 (08:21→19:27)
[2021-12-13] MEDS: montelukast 10mg tablet PO SCH (08:22)
[2021-12-13 08:50] LABS: BASOPHILS % (AUTO) 0.2 % (0-1); EOSINOPHILS # (AUTO) 0.2 X10'3 (0-0.9); EOSINOPHILS % (AUTO) 1.1 % (0-6); HEMATOCRIT 24.1 % (35.0-45.0); HEMOGLOBIN 7.4 g/dl (12.0-16.0); LYMPHOCYTES # (AUTO) 3.1 X10'3 (1.1-4.8); LYMPHOCYTES % (AUTO) 22.6 % (21-51); MEAN CORPUSCULAR HEMOGLOBIN 26.8 PG (27.0-31.0); MEAN CORPUSCULAR HGB CONC 30.8 g/dL (33.0-36.5); MEAN CORPUSCULAR VOLUME 86.8 FL (78-98); MEAN PLATELET VOLUME 8.1 FL (7.4-10.4); MONOCYTES # (AUTO) 1.1 X10'3 (0-0.9); MONOCYTES % (AUTO) 8.1 % (2-12); NEUTROPHILS # (AUTO) 9.3 X10'3 (1.8-7.7); PLATELET COUNT 170 X10'3 (140-440); RED BLOOD COUNT 2.77 X10'6 (4.20-5.60); RED CELL DISTRIBUTION WIDTH 16.7 % (11.5-14.5); WHITE BLOOD COUNT 13.6 X10'3 (4.5-11.0)
[2021-12-13 10:01] LABS: ALANINE AMINOTRANSFERASE 45 U/L (12-78); ALBUMIN 3.1 G/DL (3.4-5.0); ALBUMIN/GLOBULIN RATIO 1.3 (1.1-1.5); ANION GAP 11 (8-16); ASPARTATE AMINO TRANSFERASE 13 U/L (10-37); BILIRUBIN,TOTAL 0.4 MG/DL (0.1-1.0); BLOOD UREA NITROGEN 60 MG/DL (7-18); BUN/CREATININE RATIO 11.1 (6.6-38.0); CALCIUM 9.2 MG/DL (8.5-10.1); CHLORIDE 98 MMOL/L (99-107); CREATININE 5.39 MG/DL (0.40-0.90); GLUCOSE 108 MG/DL (70-104); SODIUM 138 MMOL/L (135-145); TOTAL CARBON DIOXIDE 29.1 MMOL/L (24-32); TOTAL PROTEIN 5.5 G/DL (6.4-8.2); eGFR 10 ML/MIN
[2021-12-13 10:06] LABS: POTASSIUM 4.6 MMOL/L (3.5-5.1)
[2021-12-13] MEDS: ALPRAZolam 0.25mg tablet PO PRN ×2 (10:14→21:29)
[2021-12-13] MEDS: heparin, porcine 5000 units/ml vial SQ SCH ×2 (10:17→19:31)
--- NOTE | 2021-12-13 10:30 | NUR ---
Patient requested to speak with child therapist. Dean came up and discuss meal options with the patient.
[2021-12-13 10:46] LABS: TOTAL CELLS COUNTED 100
[2021-12-13 10:57] LABS: PLATELET ESTIMATE NORMAL
[2021-12-13 10:58] LABS: ANISOCYTOSIS 1+
[2021-12-13 11:00] VITALS: BP 111/73
[2021-12-13 11:00] LABS: ELLIPTOCYTES 1+; HYPERSEGMENTED NEUTROPHILS 1+; POLYCHROMASIA 1+
--- NOTE | 2021-12-13 11:04 | NUR ---
Received TC from RN to w/ pt about food preferences. Discussed w/ pt food choices on Heart Healthy/Renal diet and discussed preferences w/ dietary. Also asked RN about obtaining Mg and Phos labs while pt on HD if MD agreeable. Addendum: 12/13/21 at [address] Amended: Links added.
[2021-12-13] MEDS: sevelamer carbonate 0.8gm powder pkt PO SCH ×3 (11:40→19:27)
[2021-12-13] MEDS: azithromycin/NS 500mg/250ml 250 ML IV SCH (13:00)
[2021-12-13 15:00] VITALS: BP 130/56
[2021-12-13 18:00] VITALS: BP 120/69
[2021-12-13 22:00] VITALS: BP 126/77
[2021-12-14] MEDS: hydrOXYzine 25 MG tablet PO PRN ×3 (01:53→17:45)
[2021-12-14 02:00] VITALS: BP 123/73
[2021-12-14] MEDS: ipratropium/albuterol 3ml nebule NEB SCH ×3 (02:26→16:29)
[2021-12-14 06:00] VITALS: BP 138/82
[2021-12-14] MEDS ORDERED: LIDOcaine 1% (10mg/ml) 2ml vial SQ ONE (08:00)
[2021-12-14] MEDS ORDERED: EPOETIN ALFA-EPBX 20,000 UNIT/ML 1 ML MDV IV ONE (08:00)
[2021-12-14] MEDS: heparin, porcine 5000 units/ml vial SQ SCH ×2 (08:00→08:59)
[2021-12-14] MEDS: carVEDilol 12.5mg tablet PO SCH (08:00)
[2021-12-14] MEDS: azithromycin/NS 500mg/250ml 250 ML IV SCH (08:00)
[2021-12-14] MEDS ORDERED: normal saline 1000ml 250 ML IV PRN (08:00)
[2021-12-14] MEDS ORDERED: heparin 1,000 units/ml 10ml inj IV ONE (08:00)
[2021-12-14] MEDS: montelukast 10mg tablet PO SCH (08:58)
[2021-12-14] MEDS: predniSONE 20 mg tablet PO SCH (08:58)
[2021-12-14] MEDS: benzonatate 100mg capsule PO SCH ×2 (08:58→13:52)
[2021-12-14] MEDS: aspirin 81mg, enteric-coated 1 TAB TABLET.DR PO SCH (08:59)
--- NOTE | 2021-12-14 09:00 | NUR ---
Problems reprioritized. Patient report given, questions answered & plan of care reviewed with BRAD Contreras.
[2021-12-14] MEDS: sevelamer carbonate 0.8gm powder pkt PO SCH ×2 (09:10→13:52)
[2021-12-14] MEDS ORDERED: LEVO500T90 PO (09:50)
[2021-12-14 11:00] VITALS: BP 144/81
[2021-12-14 11:14] LABS: HBSAG SCREEN Negative (Negative)
[2021-12-14] MEDS: acetaminophen 325mg tablet PO PRN ×2 (11:15→17:21)
[2021-12-14] MEDS: ALPRAZolam 0.25mg tablet PO PRN (11:15)
[2021-12-14 11:25] LABS: BASOPHILS % (AUTO) 0.3 % (0-1); EOSINOPHILS # (AUTO) 0.1 X10'3 (0-0.9); EOSINOPHILS % (AUTO) 0.6 % (0-6); HEMATOCRIT 22.8 % (35.0-45.0); HEMOGLOBIN 7.2 g/dl (12.0-16.0); LYMPHOCYTES # (AUTO) 1.7 X10'3 (1.1-4.8); LYMPHOCYTES % (AUTO) 15.6 % (21-51); MEAN CORPUSCULAR HEMOGLOBIN 27.5 PG (27.0-31.0); MEAN CORPUSCULAR HGB CONC 31.7 g/dL (33.0-36.5); MEAN CORPUSCULAR VOLUME 86.7 FL (78-98); MEAN PLATELET VOLUME 8.1 FL (7.4-10.4); MONOCYTES # (AUTO) 0.8 X10'3 (0-0.9); MONOCYTES % (AUTO) 6.9 % (2-12); NEUTROPHILS # (AUTO) 8.3 X10'3 (1.8-7.7); NEUTROPHILS % (AUTO) 76.6 % (42-75); PLATELET COUNT 158 X10'3 (140-440); RED BLOOD COUNT 2.63 X10'6 (4.20-5.60); RED CELL DISTRIBUTION WIDTH 16.3 % (11.5-14.5); WHITE BLOOD COUNT 10.9 X10'3 (4.5-11.0)
[2021-12-14 11:45] LABS: ALANINE AMINOTRANSFERASE 39 U/L (12-78); ALBUMIN/GLOBULIN RATIO 1.4 (1.1-1.5); ALKALINE PHOSPHATASE 93 IU/L (46-116); ANION GAP 10 (8-16); ASPARTATE AMINO TRANSFERASE 10 U/L (10-37); BILIRUBIN,TOTAL 0.3 MG/DL (0.1-1.0); BLOOD UREA NITROGEN 81 MG/DL (7-18); BUN/CREATININE RATIO 11.4 (6.6-38.0); CALCIUM 9.1 MG/DL (8.5-10.1); CHLORIDE 96 MMOL/L (99-107); CREATININE 7.08 MG/DL (0.40-0.90); GLUCOSE 139 MG/DL (70-104); POTASSIUM 4.9 MMOL/L (3.5-5.1); SODIUM 134 MMOL/L (135-145); TOTAL CARBON DIOXIDE 28.4 MMOL/L (24-32); TOTAL PROTEIN 5.2 G/DL (6.4-8.2); eGFR 8 ML/MIN
[2021-12-14 12:44] LABS: TOTAL CELLS COUNTED 100
[2021-12-14 12:45] LABS: ANISOCYTOSIS 1+; ELLIPTOCYTES 1+; HYPERSEGMENTED NEUTROPHILS 1+; PLATELET ESTIMATE NORMAL; POLYCHROMASIA 1+
[2021-12-14 12:46] LABS: LARGE PLATELETS FEW; TEAR DROP CELLS FEW
[2021-12-14] MEDS ORDERED: levoFLOXACIN 250mg tablet PO ONE (15:35)
--- NOTE | 2021-12-14 17:36 | NUR ---
Dr. Graff made aware via [employer] messenger about patient's requesting for Albuterol prescription to take home. Waiting for response.
[2021-12-14] MEDS ORDERED: ALBU2.5V7 NEB (17:42)
[2021-12-14] MEDS ORDERED: PRED20TA PO (17:42)
--- NOTE | 2021-12-14 18:30 | NUR ---
Patient d/c to go home with d/c instructions/directions printed and verbally given to patient and her mom. They both verbalizes understanding and denied having any question for rewriter. Patient and her mom are aware to car pick up driver prescription medication sent to pharmacy by provider. IV line and security monitor removed. She was dialyzed during the shift prior to d/c. Sutures removed prior to d/c patient. Patient was transported to the [facility] by [facility], accompanied by her mother with all personal belongings.
== END 2021-12-14 17:55 | disposition home health service (06) | DRG 193 ==
LOC: ER 16:19 → ED HOLD 19:36 → PCU 3S 21:42
PROVIDERS: ADMIT Internal Medicine; ATTEND Internal Medicine
PROC: 5A09357 Assistance with Respiratory Ventilation, Less than 24 Consecutive Hours, Continuous Positive Airway Pressure (ICD-10-PCS; principal; 2021-12-11)
PROC: 5A09357 Assistance with Respiratory Ventilation, Less than 24 Consecutive Hours, Continuous Positive Airway Pressure (ICD-10-PCS; 2021-12-12)
PROC: 5A1D70Z Performance of Urinary Filtration, Intermittent, Less than 6 Hours Per Day (ICD-10-PCS; 2021-12-12)
PROC: 5A09357 Assistance with Respiratory Ventilation, Less than 24 Consecutive Hours, Continuous Positive Airway Pressure (ICD-10-PCS; 2021-12-13)
PROC: 5A09357 Assistance with Respiratory Ventilation, Less than 24 Consecutive Hours, Continuous Positive Airway Pressure (ICD-10-PCS; 2021-12-14)
PROC: 5A1D70Z Performance of Urinary Filtration, Intermittent, Less than 6 Hours Per Day (ICD-10-PCS; 2021-12-14)
DX: J15.9 Unspecified bacterial pneumonia (principal); J96.01 Acute respiratory failure with hypoxia; N18.6 End stage renal disease; I50.23 Acute on chronic systolic (congestive) heart failure; I40.1 Isolated myocarditis; I13.2 Hypertensive heart and chronic kidney disease with heart failure and with stage 5 chronic kidney disease, or end stage renal disease; J44.0 Chronic obstructive pulmonary disease with (acute) lower respiratory infection; D72.10 Eosinophilia, unspecified; F41.9 Anxiety disorder, unspecified; G47.33 Obstructive sleep apnea (adult) (pediatric); Z20.822 Contact with and (suspected) exposure to COVID-19; Z99.2 Dependence on renal dialysis; Z79.82 Long term (current) use of aspirin; Z79.899 Other long term (current) drug therapy; Z86.73 Personal history of transient ischemic attack (TIA), and cerebral infarction without residual deficits; Z88.8 Allergy status to other drugs, medicaments and biological substances
CPT/HCPCS: 36415; 71045; 80053; 83605; 83880; 84145; 84484; 85007; 85025; 85027; 85610; 87040; 87340; 87635; 93005; 94640; 94660; 94760; 99285; A7015; C9803; G0257; G0378; J0456; J0696; J1644; J2060; J3490; J7512; Q0177; Q4081